=== PATIENT | female | born 1980 | race Caucasian/White ===

== ENCOUNTER 2018-02-10 09:29 | Emergency (ER) | payer OTHER, BC ==
[~2018-02-10] VITALS: Ht 167.6 cm; Wt 88.5 kg
[~2018-02-10 09:29] MED LIST: KEFLEX500 MG PO; PERCOCET 10/1 TABLET PO
[2018-02-10] MEDS ORDERED: BUSPAR10 MG PO (11:14)
[2018-02-10] MEDS ORDERED: HYDROMORPHONE E12 MG PO (11:15)
[2018-02-10] MEDS ORDERED: OXYCODONE HCL15 MG PO (11:15)
[2018-02-10] MEDS ORDERED: GABAPENTIN300 MG PO (11:16)
[2018-02-10 12:19] LABS: HEMATOCRIT 43.8 % (36.0-46.0); MCH 33.6 PG (29.0-34.0); MCHC 34.2 G/DL (30.0-36.0); MCV 98.2 FL (83-99); PLATELET COUNT 216 K/uL (156-360); RBC DIS.WIDTH-CV 13.2 % (11.8-14.6); RBC DIS.WIDTH-SD 47.7 % (39-53); RED BLOOD COUNT 4.46 M/uL (3.80-5.20); WHITE BLOOD COUNT 9.7 K/uL (4.1-10.2)
[2018-02-10 12:28] LABS: ALBUMIN 3.7 g/dL (3.2-4.8)
[2018-02-10 12:29] LABS: CHLORIDE 107 mEq/L (99-109); SODIUM 141 mEq/L (136-147)
[2018-02-10 12:31] LABS: GLUCOSE 102 mg/dL (70-99); TOTAL PROTEIN 6.3 g/dL (6.4-8.3)
[2018-02-10 12:33] LABS: TOTAL BILIRUBIN 0.3 mg/dL (0.0-1.0)
[2018-02-10 12:34] LABS: ALKALINE PHOSPHATASE 85 IU/L (3-129)
[2018-02-10 12:35] LABS: CREATININE 0.7 mg/dL (0.6-1.3); GFR ESTIMATE (CALCULATED) > 59 mL/min/
[2018-02-10 12:36] LABS: AST (GOT) 13 IU/L (2-34); UREA NITROGEN (BUN) 6 mg/dL (9-23)
[2018-02-10 12:37] LABS: ALT (GPT) 8 IU/L (3-49)
[2018-02-10 12:45] LABS: QUANTITATIVE HCG < 4.0 MIU/ML
[2018-02-10] MEDS ORDERED: CLEOCIN300 MG PO (14:07)
[2018-02-10] MEDS ORDERED: DIFLUCAN150 MG PO (14:16)
[2018-02-10] MEDS ORDERED: PERIDEX473 ML MM (14:16)
[2018-02-10 14:23] VITALS: BP 117/83
== END 2018-02-10 14:24 | disposition home or self-care (01) ==
LOC: EME 09:29
PROVIDERS: Nurse Practitioner Family
DX: K04.7 Periapical abscess without sinus (principal); L03.211 Cellulitis of face; E28.2 Polycystic ovarian syndrome; M19.91 Primary osteoarthritis, unspecified site; D68.2 Hereditary deficiency of other clotting factors; G50.0 Trigeminal neuralgia; Z87.891 Personal history of nicotine dependence; Z87.42 Personal history of other diseases of the female genital tract; Z86.718 Personal history of other venous thrombosis and embolism; Z86.14 Personal history of Methicillin resistant Staphylococcus aureus infection; Z91.040 Latex allergy status; Z88.8 Allergy status to other drugs, medicaments and biological substances; Z91.09 Other allergy status, other than to drugs and biological substances
CPT/HCPCS: 70487; 80053; 84702; 85027; 99281; 99282; J1885; J3370